=== PATIENT | male | born 1990 | race African-American/Black ===

== ENCOUNTER 2018-10-14 11:05 | Emergency (ER) | payer OTHER, BC ==
[2018-10-14] MEDS ORDERED: HYDROmorphone 1 MG/ML Syringe IM ONE (11:35)
--- NOTE | 2018-10-14 12:01 | EDM.PDOC ---
<Garcia Sheldon - Last Filed: 10/14/18 11:53> ED HPI GENERAL MEDICAL PROBLEM - General Chief Complaint: Upper Extremity Injury/Pain Stated Complaint: FINGER LAC Time Seen by Provider: 10/14/18 11:21 Source of Information: Reports: Patient History Limitations: Reports: No Limitations - History of Present Illness INITIAL COMMENTS - FREE TEXT/NARRATIVE: Flavio Vidales is a 28 year old male who presents to the ED with a finger tip injury to the right fifth digit. He was working at [employer] when he attempted to push a conveyer belt that was stuck and ended up getting his finger caught between the spiral belt and conveyer belt. He states that he felt a very immediate sharp pain and when he looked at his hand the very tip of his 5th digit on his right hand was cut off. He denies any numbness or tingling. It is still actively oozing blood. He does have full strength in the hand. He has no other Pm Hx. and has not taking anything for his pain. The finger tip was discovered after about 20 minutes. Right Finger-Little Pain Score (Numeric/FACES): 8 - Related Data Allergies Allergy/AdvReac Type Severity Reaction Status Date / Time No Known Allergies Allergy Verified 10/14/18 11:11 Home Meds: Home Meds Acetaminophen/HYDROcodone [[place] 325-5 MG] 1 tab PO Q6H PRN #12 tablet 10/14/18 [Rx] Amoxicillin/Clavulanate K [Augmentin 875-125 MG] 1 tab PO BID #14 tablet [Rx] Past Medical History - Infectious Disease History Infectious Disease History: Reports: Chicken Pox Social & Family History - Tobacco Use Smoking Status *Q: Never Smoker Second Hand Smoke Exposure: No - Caffeine Use Caffeine Use: Reports: Coffee - Recreational Drug Use Recreational Drug Use: No Review of Systems - Review of Systems Review Of Systems: ROS reveals no pertinent complaints other than HPI. ED EXAM, GENERAL - Physical Exam Exam: See Below Exam Limited By: No Limitations General Appearance: Alert, WD/WN, No Apparent Distress Eye Exam: Bilateral Eye: Normal Inspection Respiratory/Chest: No Respiratory Distress, Lungs Clear, Normal Breath Sounds, No Accessory Muscle Use, Chest Non-Tender Cardiovascular: Normal Peripheral Pulses, Regular Rate, Rhythm, No Edema, No Gallop, No JVD, No Murmur, No Rub Peripheral Pulses: 2+: Brachial (L), Brachial (R), Radial (L), Radial (R) Extremities: Normal Range of Motion, Other (He is missing the very distal portion of the 5th phalange on his right hand.) Neurological: Alert, Oriented, Normal Cognition, Normal Gait, Normal Reflexes, No Motor/Sensory Deficits Psychiatric: Normal Affect, Normal Mood Skin Exam: Warm, Dry, Normal Color, No Rash, Other (Ampuation of very distal 5th phalange. Still actively oozing blood.). No: Diaphoretic Course - Vital Signs Last Recorded V/S: Last Vital Signs Temp 98.4 F 10/14/18 12:46 Pulse 54 L 10/14/18 12:46 Resp 16 10/14/18 12:46 BP 135/78 10/14/18 12:46 Pulse Ox 96 10/14/18 12:46 - Orders/Labs/Meds Meds: Medications Discontinued Medications Generic Name Dose Route Start Last Admin Trade Name Freq PRN Reason Stop Dose Admin Amoxicillin/Clavulanate Potassium 1 tab 10/14/18 12:16 10/14/18 12:32 Augmentin 875 Mg/125 Mg PO 10/14/18 12:17 1 tab ONETIME ONE Administration Hydromorphone HCl 1 mg 10/14/18 11:35 10/14/18 11:45 Dilaudid IM 10/14/18 11:36 1 mg ONETIME ONE Administration Departure - Departure Disposition: Home, Self-Care 01 Clinical Impression: Partial traumatic transphalangeal amputation of right little finger Qualifiers: Encounter type: initial encounter Qualified Code(s): S68.626A - Partial traumatic transphalangeal amputation of right little finger, initial encounter - Discharge Information Prescriptions: Acetaminophen/HYDROcodone [[place] 325-5 MG] 1 tab PO Q6H PRN #12 tablet PRN Reason: Pain Amoxicillin/Clavulanate K [Augmentin 875-125 MG] 1 tab PO BID #14 tablet Instructions: Traumatic Finger Amputation Referrals: PCP,None [Primary Care Provider] - Forms: ED Department Discharge Additional Instructions: You have been evaluated in the ED for your right pinky fingertip amputation. Your x-ray demonstrated a small avulsion fracture of your right pinky finger tip. Please use ice as tolerated to the affected area. You may take Tylenol 500 mg or ibuprofen 600mg q6 hrs for pain relief. Please do so until you have a tolerable level of pain with activity. Do not exceed 4000mg tylenol, Do not exceed 3200mg ibuprofen in a 24 hour time period. You have been provided with a prescription for hydrocodone 5/325, please take this every 6 hours as needed for pain relief that is not relieved by Tylenol or ibuprofen alone. You have also been provided with a prescription for Augmentin , one tablet by mouth twice daily for 7 days. Please call Ortho for follow-up and further evaluation Dr. Harper is our orthopedic surgeon, his office number is [phone]. Please call and set up an appointment as soon as possible for further management. Please return to ED if your symptoms should change or worsen. <Loreto Paulino - Last Filed: 10/14/18 23:10> ED HPI GENERAL MEDICAL PROBLEM - History of Present Illness INITIAL COMMENTS - FREE TEXT/NARRATIVE: I have read and reviewed the student's HPI and examined the patient and agree with CUCA Campos-student. Departure - Departure Time of Disposition: 12:29 - Discharge Information *PRESCRIPTION DRUG MONITORING PROGRAM REVIEWED*: No *COPY OF PRESCRIPTION DRUG MONITORING REPORT IN PATIENT MIKAYLA: No
[2018-10-14] MEDS ORDERED: Amoxicillin/Clavulanate K 875-125 MG Tab PO ONE (12:16)
--- NOTE | 2018-10-14 12:19 | EDM.PDOC ---
ED HPI GENERAL MEDICAL PROBLEM - General Chief Complaint: Upper Extremity Injury/Pain Stated Complaint: FINGER LAC Time Seen by Provider: 10/14/18 11:21 Source of Information: Reports: Patient History Limitations: Reports: No Limitations - History of Present Illness INITIAL COMMENTS - FREE TEXT/NARRATIVE: Flavio Vidales is a 28 year old male who presents to the ED with a finger tip injury to the right fifth digit. He was working at [employer] when he attempted to push a conveyer belt that was stuck and ended up getting his finger caught between the spiral belt and conveyer belt. He states that he felt a very immediate sharp pain and when he looked at his hand the very tip of his 5th digit on his right hand was cut off. He denies any numbness or tingling. It is still actively oozing blood. He does have full strength in the hand. He has no other Pm Hx. and has not taking anything for his pain. The finger tip was discovered after about 20 minutes. I have read and reviewed the student's HPI and examined the patient and agree with Wilfred Zelaya-student. Right Finger-Little Pain Score (Numeric/FACES): 8 - Related Data Allergies Allergy/AdvReac Type Severity Reaction Status Date / Time No Known Allergies Allergy Verified 10/14/18 11:11 Home Meds: Home Meds Acetaminophen/HYDROcodone [[place] 325-5 MG] 1 tab PO Q6H PRN #12 tablet 10/14/18 [Rx] Amoxicillin/Clavulanate K [Augmentin 875-125 MG] 1 tab PO BID #14 tablet [Rx] Past Medical History - Infectious Disease History Infectious Disease History: Reports: Chicken Pox Social & Family History - Tobacco Use Smoking Status *Q: Never Smoker Second Hand Smoke Exposure: No - Caffeine Use Caffeine Use: Reports: Coffee - Recreational Drug Use Recreational Drug Use: No Review of Systems - Review of Systems Review Of Systems: ROS reveals no pertinent complaints other than HPI. Musculoskeletal: Reports: Hand Pain (right pinky finger pain) Skin: Reports: No Symptoms Neurological: Reports: No Symptoms ED EXAM, GENERAL - Physical Exam Exam: See Below Free Text/Narrative:: Flavio Vidales is a 28 year old male who presents to the ED with a finger tip injury to the right fifth digit. He was working at [employer] when he attempted to push a conveyer belt that was stuck and ended up getting his finger caught between the spiral belt and conveyer belt. He states that he felt a very immediate sharp pain and when he looked at his hand the very tip of his 5th digit on his right hand was cut off. He denies any numbness or tingling. It is still actively oozing blood. He does have full strength in the hand. He has no other Pm Hx. and has not taking anything for his pain. The finger tip was discovered after about 20 minutes. Exam Limited By: No Limitations General Appearance: Alert, WD/WN, No Apparent Distress Respiratory/Chest: No Respiratory Distress, Lungs Clear, Normal Breath Sounds, No Accessory Muscle Use, Chest Non-Tender Cardiovascular: Normal Peripheral Pulses, Regular Rate, Rhythm, No Edema, No Gallop, No JVD, No Murmur, No Rub Peripheral Pulses: 2+: Brachial (L), Brachial (R), Radial (L), Radial (R) Extremities: Normal Range of Motion, Other (He is missing the very distal portion of the 5th phalange on his right hand.) Neurological: Alert, Oriented, Normal Cognition, Normal Gait, Normal Reflexes, No Motor/Sensory Deficits Psychiatric: Normal Affect, Normal Mood Skin Exam: Warm, Dry, Normal Color, No Rash, Other (Ampuation of very distal 5th phalange. Still actively oozing blood.). No: Diaphoretic Course - Vital Signs Last Recorded V/S: Last Vital Signs Temp 98.4 F 10/14/18 12:46 Pulse 54 L 10/14/18 12:46 Resp 16 10/14/18 12:46 BP 135/78 10/14/18 12:46 Pulse Ox 96 10/14/18 12:46 - Orders/Labs/Meds Meds: Medications Discontinued Medications Generic Name Dose Route Start Last Admin Trade Name Freq PRN Reason Stop Dose Admin Amoxicillin/Clavulanate Potassium 1 tab 10/14/18 12:16 10/14/18 12:32 Augmentin 875 Mg/125 Mg PO 10/14/18 12:17 1 tab ONETIME ONE Administration Hydromorphone HCl 1 mg 10/14/18 11:35 10/14/18 11:45 Dilaudid IM 10/14/18 11:36 1 mg ONETIME ONE Administration - Re-Assessments/Exams Free Text/Narrative Re-Assessment/Exam: 10/14/18 12:27 Patient presents to the ED for the evaluation of a right pinky finger injury. He has avulsed the entire distal tip of his right pinky, the nail is gone. I have ordered a pinky finger x-ray for further evaluation of possible fracture at this time, I have ordered 1 mg IM Dilaudid for pain relief. I also did order 1 dose of Augmentin to be given in the ED, we'll provide the gentleman with pain medications and Augmentin prescriptions for home use. The x-ray is back and read with Dr. Martin, he states that there is a small fracture on the distal tip of his right pinky. Patient will be told to follow-up with orthopedics for further management of his wound. Departure - Departure Time of Disposition: 12:29 Disposition: Home, Self-Care 01 Condition: Fair Clinical Impression: Partial traumatic transphalangeal amputation of right little finger Qualifiers: Encounter type: initial encounter Qualified Code(s): S68.626A - Partial traumatic transphalangeal amputation of right little finger, initial encounter - Discharge Information *PRESCRIPTION DRUG MONITORING PROGRAM REVIEWED*: No *COPY OF PRESCRIPTION DRUG MONITORING REPORT IN PATIENT MIKAYLA: No Prescriptions: Acetaminophen/HYDROcodone [[place] 325-5 MG] 1 tab PO Q6H PRN #12 tablet PRN Reason: Pain Amoxicillin/Clavulanate K [Augmentin 875-125 MG] 1 tab PO BID #14 tablet Instructions: Traumatic Finger Amputation Referrals: PCP,None [Primary Care Provider] - Forms: ED Department Discharge Additional Instructions: You have been evaluated in the ED for your right pinky fingertip amputation. Your x-ray demonstrated a small avulsion fracture of your right pinky finger tip. Please use ice as tolerated to the affected area. You may take Tylenol 500 mg or ibuprofen 600mg q6 hrs for pain relief. Please do so until you have a tolerable level of pain with activity. Do not exceed 4000mg tylenol, Do not exceed 3200mg ibuprofen in a 24 hour time period. You have been provided with a prescription for hydrocodone 5/325, please take this every 6 hours as needed for pain relief that is not relieved by Tylenol or ibuprofen alone. You have also been provided with a prescription for Augmentin , one tablet by mouth twice daily for 7 days. Please call Ortho for follow-up and further evaluation Dr. Harper is our orthopedic surgeon, his office number is [phone]. Please call and set up an appointment as soon as possible for further management. Please return to ED if your symptoms should change or worsen.
--- NOTE | 2018-10-14 13:38 | CR ---
Right fifth finger: Four views of the right fifth finger were obtained. Soft tissue amputation is seen distally. Bony amputation is seen within the tuft of the distal phalanx. Additional small residual fragment is seen within the distal phalanx. No proximal abnormality is seen. Impression: 1. Fracture and soft tissue amputation within the distal right fifth finger. Diagnostic code #3
== END 2018-10-14 13:05 | disposition home or self-care (01) ==
LOC: JD.ED 11:05
DX: S68.626A Partial traumatic transphalangeal amputation of right little finger, initial encounter (principal); W23.0XXA Caught, crushed, jammed, or pinched between moving objects, initial encounter; Y99.0 Civilian activity done for income or pay
CPT/HCPCS: 73140; 96372; 99283; A9270; J1170; 99284

== ENCOUNTER 2018-10-15 13:07 | Emergency (ER) | payer OTHER, BC ==
--- NOTE | 2018-10-15 14:41 | EDM.PDOC ---
ED HPI GENERAL MEDICAL PROBLEM - General Chief Complaint: Wound Recheck Stated Complaint: FINGER LAC INJURY FOLLOW UP - PAIN AND BLEEDING Time Seen by Provider: 10/15/18 13:31 Source of Information: Reports: Patient History Limitations: Reports: No Limitations - History of Present Illness INITIAL COMMENTS - FREE TEXT/NARRATIVE: 28 yo M seen yesterday in ED for right 5th digit partial amputation and was bandaged/splinted, given [place], Augmentin x 7 days, and recommended f/u with ortho. He has an appointment with hand specialist Dr. John on Saturday in [place]. He returns today d/t uncontrolled bleeding of the finger. He is also experiencing occasional sharp 5/10 pain. He denies any numbness or tingling. ROM is intact. He is taking his medications as prescribed. No other complaints at this time. Right Finger-Little Pain Score (Numeric/FACES): 4 - Related Data Allergies Allergy/AdvReac Type Severity Reaction Status Date / Time No Known Allergies Allergy Verified 10/15/18 13:18 Home Meds: Home Meds Acetaminophen/HYDROcodone [[place] 325-5 MG] 1 tab PO Q6H PRN #12 tablet 10/14/18 [Rx] Amoxicillin/Clavulanate K [Augmentin 875-125 MG] 1 tab PO BID #14 tablet [Rx] Past Medical History - Past Health History Medical/Surgical History: Denies Medical/Surgical History - Infectious Disease History Infectious Disease History: Reports: Chicken Pox Social & Family History - Tobacco Use Smoking Status *Q: Never Smoker Second Hand Smoke Exposure: No - Caffeine Use Caffeine Use: Reports: Coffee - Recreational Drug Use Recreational Drug Use: No ED ROS GENERAL - Review of Systems Review Of Systems: ROS reveals no pertinent complaints other than HPI. ED EXAM, SKIN/RASH Exam: See Below Exam Limited By: No Limitations General Appearance: Alert, WD/WN, No Apparent Distress Eye Exam: Bilateral Eye: Normal Inspection Ears: Hearing Grossly Normal Peripheral Pulses: 4+: Radial (L), Radial (R) Extremities: No Pedal Edema, Normal Capillary Refill, Limited Range of Motion ( R 5th digit pain s/p injury), Other (R 5th digit pain and active bleeding s/p injury) Neurological: Alert, Oriented, CN II-XII Intact, Normal Cognition, Normal Gait, Normal Reflexes, No Motor/Sensory Deficits Psychiatric: Normal Affect, Normal Mood Skin: Warm, Dry, Wound/Incision (R 5th digit ) Location, Skin: Upper Extremity, Right (R 5th digit ) ED WOUND PROCEDURES - Splinting Right 5th Digit Pre-Made Type: Metal Splint: finger protector Pre-Proc Neuro Vasc Exam: Normal Post-Proc Neuro Vasc Exam: Unchanged From Pre-Exam Progress: Quick clot applied to wound Course - Vital Signs Last Recorded V/S: Last Vital Signs Temp 97.5 F 10/15/18 13:15 Pulse 58 L 10/15/18 13:15 Resp 16 10/15/18 13:15 BP 134/78 10/15/18 13:15 Pulse Ox 100 10/15/18 13:15 Departure - Departure Time of Disposition: 14:36 Disposition: Home, Self-Care 01 Condition: Fair Clinical Impression: Partial traumatic transphalangeal amputation of right little finger - Discharge Information *PRESCRIPTION DRUG MONITORING PROGRAM REVIEWED*: Not Applicable *COPY OF PRESCRIPTION DRUG MONITORING REPORT IN PATIENT MIKAYLA: Not Applicable Instructions: Wound Care, Adult Referrals: PCP,None [Primary Care Provider] - Forms: ED Department Discharge Additional Instructions: You were seen in the ED today for a wound re-check for continued bleeding after being seen yesterday for right pinky injury/fracture. At this time, your wound was cleaned and a clotting agent was put on the wound to help stop the bleeding and your wound was re-bandaged with a splint. It is advised you keep your appointment in [place] with the hand specialist Dr. John on Saturday. Continue taking the antibiotic and pain medication as prescribed yesterday. Please return to ED if new or worsening symptoms.
== END 2018-10-15 14:51 | disposition home or self-care (01) ==
LOC: JD.ED 13:07
DX: S68.626D Partial traumatic transphalangeal amputation of right little finger, subsequent encounter (principal); W23.1XXD Caught, crushed, jammed, or pinched between stationary objects, subsequent encounter
CPT/HCPCS: 99282

== ENCOUNTER 2020-10-27 07:51 | Day surgery (SDC) | payer BC ==
[~2020-10-27 07:51] MED LIST: EPINEPHrine 1 MG/ML 30 ML MDV IRR SCH; Lidocaine 1%/Sod Bicarbonate in NS 8.4% 1 ML Syringe IDERM PRN; Sodium Chloride 0.9% 10 ML Syringe FLUSH PRN
[2020-10-27] MEDS ORDERED: Ketorolac 30 MG/ML SDV ONE (08:03)
[2020-10-27] MEDS ORDERED: Dexamethasone 4 MG/ML 5 ML MDV ONE (08:03)
[2020-10-27] MEDS ORDERED: ceFAZolin 1 GM Vial ONE ×2 (08:03→09:09)
[2020-10-27] MEDS ORDERED: Lactated Ringers 1,000 ML ONE (08:03)
[2020-10-27] MEDS ORDERED: Midazolam 1 MG/ML 2 ML SDV ONE ×2 (08:03→08:53)
[2020-10-27] MEDS ORDERED: Propofol 200 MG/20 ML SDV ONE (08:03)
[2020-10-27] MEDS: Lactated Ringers 1,000 ML IV SCH ×2 (08:03→10:19)
[2020-10-27] MEDS ORDERED: Ondansetron 4 MG/2 ML SDV ONE (08:03)
[2020-10-27] MEDS ORDERED: fentaNYL 100 MCG/2 ML SDV ONE (08:03)
[2020-10-27] MEDS ORDERED: Lidocaine 1% 4 ML ONE (08:04)
[2020-10-27] MEDS ORDERED: Bupivacaine 0.25% 10 ML SDV ONE (08:16)
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
[2020-10-27] MEDS ORDERED: Ondansetron 4 MG/2 ML SDV IVPUSH PRN (09:35)
[2020-10-27] MEDS ORDERED: fentaNYL 100 MCG/2 ML SDV IVPUSH PRN (09:35)
[2020-10-27] MEDS ORDERED: HYDROmorphone 0.5 MG/0.5 ML Syringe IVPUSH PRN (09:35)
--- NOTE | 2020-10-27 10:11 | PCM.POSTAN ---
POST ANESTHESIA ASSESSMENT - MENTAL STATUS Mental Status: Somnolent - VITAL SIGNS Vital Signs: Last Vital Signs Temp 36.5 C 10/27/20 10:01 Pulse 56 L 10/27/20 10:01 Resp 15 10/27/20 10:01 BP 97/34 L 10/27/20 10:01 Pulse Ox 96 10/27/20 10:01 - RESPIRATORY Respiratory Status: Respiratory Rate WNL, Airway Patent (Oral Airway ), O2 Saturation Stable, Supplemental Oxygen - CARDIOVASCULAR CV Status: Pulse Rate WNL, Blood Pressure Stable - GASTROINTESTINAL GI Status: No Symptoms - PAIN Pain Score: 0 - POST OP HYDRATION Hydration Status: Adequate & Stable
--- NOTE | 2020-10-27 11:05 | PCM48HPAN ---
Post Anesthesia Note - EVALUATION WITHIN 48HRS OF ANESTHETIC Vital Signs in Normal Range: Yes Patient Participated in Evaluation: Yes Respiratory Function Stable: Yes Airway Patent: Yes Cardiovascular Function Stable: Yes Hydration Status Stable: Yes Pain Control Satisfactory: Yes Nausea and Vomiting Control Satisfactory: Yes Mental Status Recovered: Yes Vital Signs: Last Vital Signs Temp 36.6 C 10/27/20 10:45 Pulse 56 L 10/27/20 10:45 Resp 15 10/27/20 10:45 BP 124/56 L 10/27/20 10:45 Pulse Ox 100 10/27/20 10:45
--- NOTE | 2020-11-10 15:32 | PCM.OPNOTE ---
- General Post-Op/Procedure Note Date of Surgery/Procedure: 10/27/20 Operative Procedure(s): right knee video arthroscopy with partial medial meniscectomy Pre Op Diagnosis: right knee medial meniscus tear with ACL dysfunction Post-Op Diagnosis: Same Anesthesia Technique: General LMA, Local Primary Surgeon: Julio Harper Anesthesia Provider: Megan Momin Drill Press Operator: Marsha Mackey in mLs: 5 Complications: None Condition: Good
--- NOTE | 2020-11-10 17:10 | OR ---
DATE OF OPERATION: 10/27/2020 SURGEON: Julio Harper MD OPERATION PERFORMED: Right knee video arthroscopy with partial medial meniscectomy. PREOPERATIVE DIAGNOSIS: Right knee medial meniscus tear with ACL dysfunction. POSTOPERATIVE DIAGNOSIS: Right knee medial meniscus tear with ACL dysfunction. ANESTHESIA: General LMA with local. ANESTHESIA PROVIDER: Abeba Richmond. GENERATING STATION MECHANIC: Marsha Mackey PA-C ESTIMATED BLOOD LOSS: Less than 5 mL. COMPLICATIONS: None. CONDITION: Stable. DESCRIPTION OF PROCEDURE: The patient was identified in the preoperative holding area. Proper site was marked and identified by the surgeon. The patient was taken back to the operating theater where after adequate anesthesia, the patient's left lower extremity was placed in a well leg brooks. Right lower extremity had a nonsterile tourniquet applied. It was then placed in a C-clamp brooks. Foot of bed was then lowered. Right lower extremity was then sterilely prepped and draped in the usual sterile fashion. OR time-out was performed. The patient received 2 g IV Ancef. Right lower extremity was exsanguinated. Tourniquet was insufflated to 250 mmHg. Standard anterior lateral portal incision was made. Scope trocar was introduced to the knee. The patient had no significant chondromalacia changes of the patellofemoral compartment. Attention was turned to the medial compartment. With the use of a spinal needle, anteromedial portal was created. At this time, the patient was noted to have a displaced bucket- handle tear with complete disruption on the anterior horn and detachment with significant fraying and complete obliteration of the attachment of the inner 3rd to half of the medial meniscus. At this time, it was a nonrepairable and a partial medial meniscectomy of a large bucket-handle tear of the medial meniscus was performed. ACL was found to be fully detached off the femoral side. Lateral compartment showed no chondromalacia changes in the lateral meniscal tear. At this time, excess saline was drained from the knee. 3-0 nylon suture was used for closure of the incisions. The patient had a 0.25% Marcaine injected. Sterile soft dressing was applied and the patient was sent to PACU in stable condition. MMODAL /[id number]
== END 2020-10-27 12:52 | disposition home or self-care (01) ==
LOC: JD.SDS 07:51
PROVIDERS: ATTEND Orthopaedic Surgery
DX: S83.211A Bucket-handle tear of medial meniscus, current injury, right knee, initial encounter (principal); S83.511A Sprain of anterior cruciate ligament of right knee, initial encounter; S83.281A Other tear of lateral meniscus, current injury, right knee, initial encounter; X58.XXXA Exposure to other specified factors, initial encounter
CPT/HCPCS: 29881; J0171; J0690; J1100; J1885; J2250; J2405; J2704; J3010; J3490; J7120; 01400; 87641